=== PATIENT | female | born 1970 | race Caucasian/White ===

== ENCOUNTER 2016-05-26 20:13 | Emergency (ER) | payer BC ==
[~2016-05-26] VITALS: Ht 172.7 cm; Wt 136.0 kg
[2016-05-26] MEDS ORDERED: SYNTHROID200 MCG PO (20:30)
== END 2016-05-26 20:45 | disposition short-term general hospital (02) ==
LOC: ER 20:13
DX: L03.032 Cellulitis of left toe (principal); E03.9 Hypothyroidism, unspecified; Z88.8 Allergy status to other drugs, medicaments and biological substances; Z79.899 Other long term (current) drug therapy